=== PATIENT | female | born 1970 | race Caucasian/White ===

== ENCOUNTER 2017-03-24 12:06 | Emergency (ER) | payer SELFPAY ==
[2017-03-24] MEDS ORDERED: Sodium Chloride 0.9% 10 ML Syringe FLUSH PRN (12:36)
[2017-03-24] MEDS ORDERED: Sodium Chloride 0.9% 2.5 ML Syringe FLUSH PRN (12:36)
[2017-03-24] MEDS ORDERED: Ketorolac 30 MG/ML SDV IVPUSH ONE (12:37)
[2017-03-24] MEDS ORDERED: Sodium Chloride 0.9% 1,000 ML IV ONE (12:37)
--- NOTE | 2017-03-24 12:41 | EDM.PDOC ---
ED HPI GENERAL MEDICAL PROBLEM - General Chief Complaint: Abdominal Pain Stated Complaint: ABDOMINAL PAIN Time Seen by Provider: 03/24/17 12:38 Source of Information: Reports: Patient, Family History Limitations: Reports: No Limitations - History of Present Illness INITIAL COMMENTS - FREE TEXT/NARRATIVE: HISTORY AND PHYSICAL: []46-year-old female presenting with abdominal pain complains of heavy bleeding 3 days History of Present Illness: []Patient's states she's been bleeding off and on for the last 2 months history of prolapsed uterus She has 4 children [place] and has not established any primary care Patient has been seen in [place] last night was treated for "UTI given morphine and sent home" Continuing to Have pain today Review of Systems: As per history of present illness and below otherwise all systems reviewed and negative. Past medical history: As per history of present illness and as reviewed below otherwise noncontributory. Surgical history: As per history of present illness and as reviewed below otherwise noncontributory. Social history: No reported history of drug or alcohol abuse. Family history: As per history of present illness and as reviewed below otherwise noncontributory. Physical exam: Alert and oriented female who looks to be slightly distressed she is answering questions appropriately in full sentences HEENT: Atraumatic, normocehpalic, pupils reactive, negative for conjunctival pallor or scleral icterus, mucous membranes moist, throat clear, neck supple, nontender, trachea midline. Lungs: Clear to auscultation, breath sounds equal bilaterally, chest non tender. Heart: S1S2, regular, negative for clicks, rubs, or JVD. Abdomen: Soft, nondistended, tender. Negative for masses or hepatossplenmegaly. Negative for costovertebral tenderness. Pelvis: Stable nontender. Genitourinary: Deferred. Rectal: Deferred Extremities: Atraumatic, negative for cords or calf pain. Neurovascular unremarkable. Neuro: Awake, alert, oriented. Cranial nerves II through XII unremarkable. Cerebellum unremarkable. Motor and sensory unremarkable throughout. Exam nonfocal. Have discussed with and client dysfunctional uterine bleeding and the need to follow-up with INVENTORY TRANSCRIBER specialist. Diagnostics: [CBC CMP amylase lipase IV] Therapeutics: [Toradol IV 30 mg] Impression: [Dysfunctional uterine bleeding] Plan: [Refer to BRAILLE CODER Patient can be seen now at [facility] and will send her there.] Definitive disposition and diagnosis as appropriate pending reevaluation and review of above. Onset: Gradual Duration: Day(s):, Getting Worse Location: Reports: Abdomen Quality: Reports: Ache, Stabbing Severity: Moderate Associated Symptoms: Reports: No Other Symptoms Lower Abdomen Pain Score (Numeric/FACES): 8 - Related Data Allergies Allergy/AdvReac Type Severity Reaction Status Date / Time No Known Allergies Allergy Verified 03/24/17 12:13 Home Meds: Home Meds Carvedilol 12.5 mg PO DAILY 03/24/17 [History] DULoxetine [Cymbalta] 60 mg PO DAILY 03/24/17 [History] Gabapentin [Neurontin] 800 mg PO TID 03/24/17 [History] Past Medical History Cardiovascular History: Reports: Hypertension BRAILLE CODER History: Reports: Other (See Below) Musculoskeletal History: Reports: RA Social & Family History - Tobacco Use Smoking Status *Q: Current Every Day Smoker Years of Tobacco use: 17 Packs/Tins Daily: 0.5 - Caffeine Use Caffeine Use: Reports: None - Recreational Drug Use Recreational Drug Use: No ED ROS GENERAL - Review of Systems Review Of Systems: ROS reveals no pertinent complaints other than HPI. ED EXAM, GI/ABD - Physical Exam Exam: See Below (See dictation) Course - Vital Signs Last Recorded V/S: Last Vital Signs Temp 36.4 C 03/24/17 12:15 Pulse 96 03/24/17 12:15 Resp 18 03/24/17 12:15 BP 173/81 H 03/24/17 12:15 Pulse Ox 98 03/24/17 12:15 - Orders/Labs/Meds Orders: Active Orders 24 hr Category Date Time Status Sodium Chloride 0.9% [Saline Flush] Med 03/24/17 12:36 Active 10 ml FLUSH ASDIRECTED PRN Sodium Chloride 0.9% [Saline Flush] Med 03/24/17 12:36 Active 2.5 ml FLUSH ASDIRECTED PRN Saline Lock Insert [OM.PC] Stat Oth 03/24/17 12:36 Ordered Medication Orders Sodium Chloride (Saline Flush) 10 ml FLUSH ASDIRECTED PRN PRN Reason: Keep Vein Open Last Admin: 03/24/17 12:45 Dose: 10 ml Sodium Chloride (Saline Flush) 2.5 ml FLUSH ASDIRECTED PRN PRN Reason: Keep Vein Open Last Admin: 03/24/17 12:45 Dose: 2.5 ml Labs: Laboratory Tests 03/24/17 03/24/17 03/24/17 Range/Units 12:40 12:40 12:40 WBC 9.38 (4.0-11.0) K/uL RBC 4.25 L (4.30-5.90) M/uL Hgb 13.1 (12.0-16.0) g/dL Hct 37.8 (36.0-46.0) % MCV 88.9 (80.0-98.0) fL MCH 30.8 (27.0-32.0) pg MCHC 34.7 (31.0-37.0) g/dL RDW Std Deviation 39.8 (28.0-62.0) fl RDW Coeff of Christie 13 (11.0-15.0) % Plt Count 316 (150-400) K/uL MPV 11.30 (7.40-12.00) fL Neut % (Auto) 56.1 (48.0-80.0) % Lymph % (Auto) 35.6 (16.0-40.0) % Haywood % (Auto) 5.3 (0.0-15.0) % Eos % (Auto) 2.8 (0.0-7.0) % Baso % (Auto) 0.2 (0.0-1.5) % Neut # (Auto) 5.3 (1.4-5.7) K/uL Lymph # (Auto) 3.3 H (0.6-2.4) K/uL Haywood # (Auto) 0.5 (0.0-0.8) K/uL Eos # (Auto) 0.3 (0.0-0.7) K/uL Baso # (Auto) 0.0 (0.0-0.1) K/uL Sodium 141 (136-146) mmol/L Potassium 3.9 (3.5-5.1) mmol/L Chloride 107 (98-110) mmol/L Carbon Dioxide 25 (21-31) mmol/L BUN 11 (6.0-23.0) mg/dL Creatinine 0.8 (0.6-1.5) mg/dL Est Cr Clr Drug Dosing 86.36 mL/min Estimated GFR (MDRD) > 60.0 ml/min Glucose 130 H (60-110) mg/dL Calcium 9.8 (8.8-10.8) mg/dL Total Bilirubin 0.3 (0.1-1.5) mg/dL AST 17 (5-40) IU/L ALT 20 (8-54) IU/L Alkaline Phosphatase 77 (40-150) B-Natriuretic Peptide < 15 (<100) PG/ML Total Protein 6.9 (6.0-8.0) g/dL Albumin 4.0 (3.5-5.0) g/dL Globulin 2.9 (2.0-3.5) g/dL Albumin/Globulin Ratio 1.4 (1.3-2.8) Amylase 48 (10-90) U/L Lipase 52 (7-80) U/L TSH 3rd Generation 0.57 (0.47-5.0) uIU/mL Urine Color Urine Appearance Urine pH (5.0-8.0) Ur Specific Blevins (1.001-1.035) Urine Protein (NEGATIVE) mg/dL Urine Glucose (UA) (NEGATIVE) mg/dL Urine Ketones (NEGATIVE) mg/dL Urine Occult Blood (NEGATIVE) Urine Nitrite (NEGATIVE) Urine Bilirubin (NEGATIVE) Urine Urobilinogen (<2.0) EU/dL Ur Leukocyte Esterase (NEGATIVE) Urine RBC (0-2/HPF) Urine WBC (0-5/HPF) Ur Epithelial Cells (NONE-FEW) Amorphous Sediment (NEGATIVE) Urine Bacteria (NEGATIVE) Urine HCG, Qual (NEGATIVE) 03/24/17 03/24/17 Range/Units 12:50 12:50 WBC (4.0-11.0) K/uL RBC (4.30-5.90) M/uL Hgb (12.0-16.0) g/dL Hct (36.0-46.0) % MCV (80.0-98.0) fL MCH (27.0-32.0) pg MCHC (31.0-37.0) g/dL RDW Std Deviation (28.0-62.0) fl RDW Coeff of Christie (11.0-15.0) % Plt Count (150-400) K/uL MPV (7.40-12.00) fL Neut % (Auto) (48.0-80.0) % Lymph % (Auto) (16.0-40.0) % Haywood % (Auto) (0.0-15.0) % Eos % (Auto) (0.0-7.0) % Baso % (Auto) (0.0-1.5) % Neut # (Auto) (1.4-5.7) K/uL Lymph # (Auto) (0.6-2.4) K/uL Haywood # (Auto) (0.0-0.8) K/uL Eos # (Auto) (0.0-0.7) K/uL Baso # (Auto) (0.0-0.1) K/uL Sodium (136-146) mmol/L Potassium (3.5-5.1) mmol/L Chloride (98-110) mmol/L Carbon Dioxide (21-31) mmol/L BUN (6.0-23.0) mg/dL Creatinine (0.6-1.5) mg/dL Est Cr Clr Drug Dosing mL/min Estimated GFR (MDRD) ml/min Glucose (60-110) mg/dL Calcium (8.8-10.8) mg/dL Total Bilirubin (0.1-1.5) mg/dL AST (5-40) IU/L ALT (8-54) IU/L Alkaline Phosphatase (40-150) B-Natriuretic Peptide (<100) PG/ML Total Protein (6.0-8.0) g/dL Albumin (3.5-5.0) g/dL Globulin (2.0-3.5) g/dL Albumin/Globulin Ratio (1.3-2.8) Amylase (10-90) U/L Lipase (7-80) U/L TSH 3rd Generation (0.47-5.0) uIU/mL Urine Color YELLOW Urine Appearance SLT CLOUDY Urine pH 6.0 (5.0-8.0) Ur Specific Blevins <= 1.005 (1.001-1.035) Urine Protein NEGATIVE (NEGATIVE) mg/dL Urine Glucose (UA) NEGATIVE (NEGATIVE) mg/dL Urine Ketones NEGATIVE (NEGATIVE) mg/dL Urine Occult Blood LARGE H (NEGATIVE) Urine Nitrite NEGATIVE (NEGATIVE) Urine Bilirubin NEGATIVE (NEGATIVE) Urine Urobilinogen 0.2 (<2.0) EU/dL Ur Leukocyte Esterase NEGATIVE (NEGATIVE) Urine RBC 15-20 (0-2/HPF) Urine WBC 0-2 (0-5/HPF) Ur Epithelial Cells RARE (NONE-FEW) Amorphous Sediment FEW (NEGATIVE) Urine Bacteria FEW (NEGATIVE) Urine HCG, Qual NEGATIVE (NEGATIVE) Meds: Medications Generic Name Dose Route Start Last Admin Trade Name Freq PRN Reason Stop Dose Admin Sodium Chloride 10 ml 03/24/17 12:36 03/24/17 12:45 Saline Flush FLUSH 10 ml ASDIRECTED PRN Administration Keep Vein Open Sodium Chloride 2.5 ml 03/24/17 12:36 03/24/17 12:45 Saline Flush FLUSH 2.5 ml ASDIRECTED PRN Administration Keep Vein Open Discontinued Medications Generic Name Dose Route Start Last Admin Trade Name Freq PRN Reason Stop Dose Admin Sodium Chloride 1,000 mls @ 999 mls/hr 03/24/17 12:37 03/24/17 12:44 Normal Saline IV 03/24/17 13:37 999 mls/hr STAT ONE Administration Ketorolac Tromethamine 30 mg 03/24/17 12:37 03/24/17 12:44 Toradol IVPUSH 03/24/17 12:38 30 mg ONETIME ONE Administration Morphine Sulfate 2 mg 03/24/17 14:18 Morphine IV 03/24/17 14:19 ONETIME ONE Departure - Departure Time of Disposition: 14:19 Disposition: Home, Self-Care 01 Condition: Good Clinical Impression: Dysfunctional uterine bleeding - Discharge Information Instructions: Pain Medicine Instructions, [id number] Referrals: PCP,Wilman [Primary Care Provider] - Khalida Baker [Physician] - Forms: ED Department Discharge Additional Instructions: The following information is given to patients seen in the emergency department who are being discharged to home. This information is to outline your options for follow-up care. We provide all patients seen in our emergency department with a follow-up referral. The need for follow-up, as well as the timing and circumstances, are variable depending upon the specifics of your emergency department visit. If you don't have a primary care physician on staff, we will provide you with a referral. We always advise you to contact your personal physician following an emergency department visit to inform them of the circumstance of the visit and for follow-up with them and/or the need for any referrals to a consulting specialist. The emergency department will also refer you to a specialist when appropriate. This referral assures that you have the opportunity for followup care with a specialist. All of these measure are taken in an effort to provide you with optimal care, which includes your followup. Under all circumstances we always encourage you to contact your private physician who remains a resource for coordinating your care. When calling for followup care, please make the office aware that this follow-up is from your recent emergency room visit. If for any reason you are refused follow-up, please contact the [facility] emergency department at and asked to speak to the emergency department charge nurse. Have discussed dysfunctional uterine bleeding and recommend that you follow-up with a REGISTRATION SPECIALIST specialist Pain medication has been written for prescription Hydrocodone/APAP 5/325 mg 1 tablet 3 times a day when necessary pain #12NR Referral has been made to Dr. Puente at [facility] [address] [place] [address] Please call for an appointment right away and stated that she was seen in the emergency room and referred - My Orders Last 24 Hours: My Active Orders 03/24/17 12:36 Sodium Chloride 0.9% [Saline Flush] 10 ml FLUSH ASDIRECTED PRN Sodium Chloride 0.9% [Saline Flush] 2.5 ml FLUSH ASDIRECTED PRN Saline Lock Insert [OM.PC] Stat - Assessment/Plan Last 24 Hours: My Active Orders 03/24/17 12:36 Sodium Chloride 0.9% [Saline Flush] 10 ml FLUSH ASDIRECTED PRN Sodium Chloride 0.9% [Saline Flush] 2.5 ml FLUSH ASDIRECTED PRN Saline Lock Insert [OM.PC] Stat
[2017-03-24 13:14] LABS: CHLORIDE,CL 107 mmol/L (98-110); SODIUM,NA 141 mmol/L (136-146)
--- NOTE | 2017-03-24 14:05 | US ---
Pelvic non-OB sonogram Longitudinal and transverse sections demonstrate that the uterus is of normal size and contour with some thickness of the endometrium measuring 1.7 cm with no endometrial gestational sac or fluid. Huslia soila measures 10.08 x 6.12 x 6.89 cm. Right ovary is greatest dimension is 2.2 cm in length and left ovaries greatest dimension is 3.65 cm in length there is a 3.4 cm simple cyst associated with the le ft ovary. No free fluid in the pelvis. Impression: Findings consistent with likely mid cycle uterus and ovarian cyst as described. No evide nce of significant cyst hemorrhage
[2017-03-24] MEDS ORDERED: Morphine 10 MG/ML Syringe IV ONE (14:18)
[2017-03-24 14:42] VITALS: BP 155/90
== END 2017-03-24 14:41 | disposition home or self-care (01) ==
LOC: MW.ED 12:06
DX: N93.8 Other specified abnormal uterine and vaginal bleeding (principal); I10 Essential (primary) hypertension; F17.210 Nicotine dependence, cigarettes, uncomplicated; Z79.899 Other long term (current) drug therapy
CPT/HCPCS: 36415; 76856; 80053; 81001; 81025; 82150; 83690; 83880; 84443; 85025; 96361; 96374; 96375; 99284; J1885; J2270; J7040

== ENCOUNTER 2017-10-23 21:30 | Emergency (ER) | payer BC ==
--- NOTE | 2017-10-23 21:40 | EDM.PDOC ---
<Juhi Gibson E - Last Filed: 10/23/17 21:46> ED HPI GENERAL MEDICAL PROBLEM - General Chief Complaint: General Stated Complaint: WEAK/CONGESTION Time Seen by Provider: 10/23/17 21:37 Source of Information: Reports: Patient History Limitations: Reports: No Limitations - History of Present Illness INITIAL COMMENTS - FREE TEXT/NARRATIVE: HISTORY AND PHYSICAL: History of present illness: Patient is a 47-year-old female who presents to the emergency room today with complaints of sore throat, chest congestion and pressure, low abdominal cramping and fatigue/weakness 5 days. She denies any fever, chills, nausea, vomiting, diarrhea/constipation. Diffuse abdominal pain without tenderness. Patient reports that she has had vaginal discharge and low abdominal cramping for several months which she is currently doctoring with Dr. Martin, and has a hysterectomy scheduled next week. Review of systems: As per history of present illness and below otherwise all systems reviewed and negative. Past medical history: As per history of present illness and as reviewed below otherwise noncontributory. Surgical history: As per history of present illness and as reviewed below otherwise noncontributory. Social history: No reported history of drug or alcohol abuse. Family history: As per history of present illness and as reviewed below otherwise noncontributory. Physical exam: General: Well developed and well nourished 47 year old female. Alert and oriented. Nontoxic appearing and in no acute distress HEENT: Atraumatic, normocephalic, pupils reactive, negative for conjunctival pallor or scleral icterus, mucous membranes moist, throat clear, neck supple, nontender, trachea midline. Lungs: Clear to auscultation, breath sounds equal bilaterally, chest nontender. Heart: S1S2, regular rate and rhythm Abdomen: Soft, nondistended, nontender. Negative for masses or hepatosplenomegaly. Negative for costovertebral tenderness. Pelvis: Stable nontender. Genitourinary: Deferred. Rectal: Deferred. Extremities: Atraumatic, negative for cords or calf pain. Neurovascular unremarkable. Neuro: Awake, alert, oriented. Cranial nerves II through XII unremarkable. Cerebellum unremarkable. Motor and sensory unremarkable throughout. Exam nonfocal. We discussed doing some lab work at this time. I did ask about the vaginal discharge/cramping and she states she is doctoring for this with her BUSINESS SEGMENT MANAGER. She declines a pelvic exam at this time as she states this is not a new concern and is being her primary OBGYN. Pressure is currently elevated, she does state she takes medications daily and is usually well managed. Diagnostics: CBC, CMP, Monospot, Strep Screen, UA Therapeutics: IV Fluids, Duo Neb Impression: Viral Illness Abdominal Pain Plan: 1. Supportive care measures such as Tylenol and/or ibuprofen as needed for pain and fever management. 2. Please drink plenty of fluids to prevent dehydration. 3. Continue care with your BUSINESS SEGMENT MANAGER for further management of your gyncological needs. Return to the ED as needed and as discussed. Definitive disposition and diagnosis as appropriate pending reevaluation and review of above. Duration: Day(s): abdomen Pain Score (Numeric/FACES): 7 - Related Data Allergies Allergy/AdvReac Type Severity Reaction Status Date / Time No Known Allergies Allergy Verified 10/23/17 21:35 Home Meds: Home Meds Carvedilol 12.5 mg PO DAILY 03/24/17 [History] DULoxetine [Cymbalta] 60 mg PO DAILY 03/24/17 [History] Gabapentin [Neurontin] 600 mg PO TID 03/24/17 [History] Melatonin 0 tab PO BEDTIME 10/23/17 [History] Past Medical History Cardiovascular History: Reports: Hypertension BUSINESS SEGMENT MANAGER History: Reports: Other (See Below) Musculoskeletal History: Reports: RA Social & Family History - Tobacco Use Smoking Status *Q: Current Every Day Smoker Years of Tobacco use: 17 Packs/Tins Daily: 0.5 - Caffeine Use Caffeine Use: Reports: None - Recreational Drug Use Recreational Drug Use: No ED ROS GENERAL - Review of Systems Review Of Systems: ROS reveals no pertinent complaints other than HPI. ED EXAM, GENERAL - Physical Exam Exam: See Below (See dictation) Course - Vital Signs Last Recorded V/S: Last Vital Signs Temp 36.6 C 10/23/17 21:30 Pulse 90 10/23/17 22:50 Resp 16 10/23/17 22:50 BP 155/82 H 10/23/17 22:50 Pulse Ox 100 10/23/17 22:50 - Orders/Labs/Meds Orders: Active Orders 24 hr Category Date Time Status EKG Documentation Completion [RC] STAT Care 03/16/18 21:43 Active RT Aerosol Therapy [RC] ASDIRECTED Care 10/23/17 21:43 Active Chest 1V Frontal [CR] Stat Exams 10/23/17 21:43 Taken CULTURE STREP A CONFIRMATION [RM] Stat Lab 10/23/17 21:50 Results STREP SCRN A RAPID W CULT CONF [RM] Stat Lab 10/23/17 21:50 Results Labs: Laboratory Tests 10/23/17 10/23/17 10/23/17 Range/Units 21:54 21:54 21:54 WBC 8.64 (4.0-11.0) K/uL RBC 4.69 (4.30-5.90) M/uL Hgb 13.2 (12.0-16.0) g/dL Hct 39.9 (36.0-46.0) % MCV 85.1 (80.0-98.0) fL MCH 28.1 (27.0-32.0) pg MCHC 33.1 (31.0-37.0) g/dL RDW Std Deviation 44.0 (28.0-62.0) fl RDW Coeff of Christie 14 (11.0-15.0) % Plt Count 285 (150-400) K/uL MPV 11.00 (7.40-12.00) fL Neut % (Auto) 54.8 (48.0-80.0) % Lymph % (Auto) 29.4 (16.0-40.0) % Crenshaw % (Auto) 9.7 (0.0-15.0) % Eos % (Auto) 5.8 (0.0-7.0) % Baso % (Auto) 0.3 (0.0-1.5) % Neut # (Auto) 4.7 (1.4-5.7) K/uL Lymph # (Auto) 2.5 H (0.6-2.4) K/uL Crenshaw # (Auto) 0.8 (0.0-0.8) K/uL Eos # (Auto) 0.5 (0.0-0.7) K/uL Baso # (Auto) 0.0 (0.0-0.1) K/uL Nucleated RBC % 0.0 /100WBC Nucleated RBCs # 0 K/uL Sodium 139 (136-145) mmol/L Potassium 3.8 (3.5-5.1) mmol/L Chloride 102 (98-107) mmol/L Carbon Dioxide 28.2 (21.0-32.0) mmol/L BUN 12 (7.0-18.0) mg/dL Creatinine 0.7 (0.6-1.0) mg/dL Est Cr Clr Drug Dosing TNP Estimated GFR (MDRD) > 60.0 ml/min Glucose 104 (74-106) mg/dL Calcium 9.4 (8.5-10.1) mg/dL Total Bilirubin 0.2 (0.2-1.0) mg/dL AST 16 (15-37) IU/L ALT 22 (14-63) IU/L Alkaline Phosphatase 108 (46-116) U/L Troponin I < 0.050 (0.000-0.056) ng/mL Total Protein 7.3 (6.4-8.2) g/dL Albumin 3.8 (3.4-5.0) g/dL Globulin 3.5 (2.0-3.5) g/dL Albumin/Globulin Ratio 1.1 L (1.3-2.8) Monoscreen NEGATIVE (NEG) Meds: Medications Discontinued Medications Generic Name Dose Route Start Last Admin Trade Name Freq PRN Reason Stop Dose Admin Albuterol/Ipratropium 3 ml 10/23/17 21:43 10/23/17 22:12 Duoneb 3.0-0.5 Mg/3 Ml NEB 10/23/17 21:44 3 ml ONETIME ONE Administration Sodium Chloride 1,000 mls @ 999 mls/hr 10/23/17 21:45 10/23/17 21:56 Normal Saline IV 10/23/17 22:45 999 mls/hr STAT ONE Administration Ketorolac Tromethamine 30 mg 10/23/17 21:50 10/23/17 21:59 Toradol IVPUSH 10/23/17 21:51 30 mg ONETIME ONE Administration Departure - Departure Disposition: Home, Self-Care 01 Clinical Impression: Viral syndrome - Discharge Information Referrals: PCP,None [Primary Care Provider] - Forms: ED Department Discharge Additional Instructions: My general discharge The following information is given to patients seen in the emergency department who are being discharged to home. This information is to outline your options for follow-up care. We provide all patients seen in our emergency department with a follow-up referral. The need for follow-up, as well as the timing and circumstances, are variable depending upon the specifics of your emergency department visit. If you don't have a primary care physician on staff, we will provide you with a referral. We always advise you to contact your personal physician following an emergency department visit to inform them of the circumstance of the visit and for follow-up with them and/or the need for any referrals to a consulting specialist. The emergency department will also refer you to a specialist when appropriate. This referral assures that you have the opportunity for follow-up care with a specialist. All of these measure are taken in an effort to provide you with optimal care, which includes your follow-up. Under all circumstances we always encourage you to contact your private physician who remains a resource for coordinating your care. When calling for follow-up care, please make the office aware that this follow-up is from your recent emergency room visit. If for any reason you are refused follow-up, please contact the [facility] Emergency Department at and asked to speak to the emergency department charge nurse. [facility] [address] [place] [id number] 1. Supportive care measures such as Tylenol and/or ibuprofen as needed for pain and fever management. 2. Please drink plenty of fluids to prevent dehydration. 3. Continue care with your BUSINESS SEGMENT MANAGER for further management of your gyncological needs. Return to the ED as needed and as discussed. <Etienne Esteban - Last Filed: 10/23/17 23:01> Departure - Departure Time of Disposition: 23:01 Condition: Good
[2017-10-23] MEDS ORDERED: Albuterol/Ipratropium 3.0-0.5 MG/3 ML Neb Soln NEB ONE (21:43)
[2017-10-23] MEDS ORDERED: Sodium Chloride 0.9% 1,000 ML IV ONE (21:45)
[2017-10-23] MEDS ORDERED: Ketorolac 30 MG/ML SDV IVPUSH ONE (21:50)
[2017-10-23 22:32] LABS: CHLORIDE,CL 102 mmol/L (98-107); SODIUM,NA 139 mmol/L (136-145)
[2017-10-23 22:51] VITALS: BP 155/82
--- NOTE | 2017-10-26 15:13 | CR ---
EXAM DATE: 10/23/17 PATIENT'S AGE: 47 Patient: NORM DENISE Facility: [place], [place] Site . Site : [id number] Study: XRay Chest [id number] 10:35:44 PM Ordering Physician: Doctor Chau Final Report: INDICATION: cough x1 wk, sob, weakness TECHNIQUE: Chest 1 view COMPARISON: None FINDINGS: Cardiovascular and mediastinum: Heart size and vasculature are normal in caliber and appearance. Mediastinum is within normal limits. Lungs and pleural space: No focal consolidation. No sign of pleural effusion. No pneumothorax. Bones and soft tissues: No significant findings. IMPRESSION: No acute cardiopulmonary disease. Dictated by Eric Becker MD @ 10/23/2017 10:54:51 PM Dictated by: Eric Becker MD @ 10/23/2017 22:54:59 (Electronic Signature) Report Signed by Proxy. [email or web address]
== END 2017-10-23 23:12 | disposition home or self-care (01) ==
LOC: MW.ED 21:30
DX: B34.9 Viral infection, unspecified (principal); I10 Essential (primary) hypertension; F17.210 Nicotine dependence, cigarettes, uncomplicated; Z79.899 Other long term (current) drug therapy
CPT/HCPCS: 36415; 71045; 80053; 84484; 85025; 86308; 87081; 87804; 87880; 93005; 94640; 96361; 96374; 99285; J1885; J7040; 99283

== ENCOUNTER 2018-10-05 06:43 | Day surgery (SDC) | payer BC ==
[~2018-10-05 06:43] MED LIST: Lactated Ringers 1,000 ML IV SCH
[2018-10-05] MEDS ORDERED: Rocuronium 10 MG/ML 10 ML Syringe ONE (07:18)
[2018-10-05] MEDS ORDERED: Ondansetron 4 MG/2 ML SDV ONE (07:18)
[2018-10-05] MEDS ORDERED: Propofol 200 MG/20 ML SDV ONE (07:18)
[2018-10-05] MEDS ORDERED: fentaNYL 250 MCG/5 ML SDV ONE (07:19)
[2018-10-05] MEDS ORDERED: Scopolamine 1.5 MG Transdermal Patch TRDERM PRN (07:19)
--- NOTE | 2018-10-05 07:22 | PCM.PREANE ---
Preanesthetic Assessment - Anesthesia/Transfusion/Family Hx Anesthesia History: Prior Anesthesia Without Reaction Family History of Anesthesia Reaction: No Transfusion History: Prior Transfusion Without Reaction Intubation History: Unknown - Review of Systems General: No Symptoms Pulmonary: No Symptoms Cardiovascular: No Symptoms Gastrointestinal: No Symptoms Neurological: No Symptoms Other: Reports: None - Physical Assessment Height: 1.7 m Weight: 91.626 kg ASA Class: 2 Mental Status: Alert & Oriented x3 Airway Class: Mallampati = 2 Dentition: Reports: Normal Dentition Thyro-Mental Finger Breadths: 3 Mouth Opening Finger Breadths: 3 ROM/Head Extension: Full Lungs: Clear to Auscultation, Normal Respiratory Effort Cardiovascular: Regular Rate, Regular Rhythm - Allergies Allergies/Adverse Reactions: Allergies Allergy/AdvReac Type Severity Reaction Status Date / Time No Known Allergies Allergy Verified 09/30/18 10:51 - Blood Blood Available: No - Anesthesia Plan Pre-Op Medication Ordered: None - Acknowledgements Anesthesia Type Planned: General Anesthesia Pt an Appropriate Candidate for the Planned Anesthesia: Yes Alternatives and Risks of Anesthesia Discussed w Pt/Guardian: Yes Pt/Guardian Understands and Agrees with Anesthesia Plan: Yes PreAnesthesia Questionnaire Cardiovascular History: Reports: Hypertension Gastrointestinal History: Reports: None Genitourinary History: Reports: None 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: Musculoskeletal History: Reports: Fibromyalgia, RA Psychiatric History: Reports: Anxiety Endocrine/Metabolic History: Reports: Obesity/BMI 30+ Hematologic History: Reports: Anemia, Blood Transfusion(s) - Past Surgical History GI Surgical History: Reports: Appendectomy Female Surgical History: Reports: Section - SUBSTANCE USE Smoking Status *Q: Former Smoker (quit smoking 6 months ago, now uses vaporizer) Tobacco Use Within Last Twelve Months: Cigarettes Recreational Drug Use History: No - HOME MEDS Home Medications: Home Meds Carvedilol 25 mg PO QAM 03/24/17 [History] DULoxetine [Cymbalta] 60 mg PO DAILY 03/24/17 [History] Gabapentin [Neurontin] 600 mg PO TID 03/24/17 [History] - CURRENT (IN HOUSE) MEDS Current Meds: Current Medications Lactated Ringer's (Ringers, Lactated) 1,000 mls @ 125 mls/hr IV ASDIRECTED [facility]
[2018-10-05] MEDS ORDERED: Midazolam 1 MG/ML 2 ML SDV ONE (07:23)
[2018-10-05] MEDS ORDERED: Fluorescein 5 ML Vial ONE (07:33)
[2018-10-05] MEDS ORDERED: Bupivacaine 0.25% 10 ML SDV ONE (07:33)
[2018-10-05 07:42] LABS: CHLORIDE,CL 103 mmol/L (98-107); SODIUM,NA 142 mmol/L (136-145)
[2018-10-05] MEDS ORDERED: ceFAZolin/Dextrose,Iso-Osmotic 2 GM/50 ML Duplex Bag IV ONE (08:38)
[2018-10-05] MEDS ORDERED: ePHEDrine 50 MG/ML SDV ONE (08:45)
[2018-10-05] MEDS ORDERED: Phenylephrine/Normal Saline 100 MCG/ML 10 ML Syringe ONE (08:45)
[2018-10-05] MEDS ORDERED: Vasopressin 20 Units/1 ML MDV ONE ×2 (08:46→09:00)
[2018-10-05] MEDS ORDERED: Ketorolac 30 MG/ML SDV ONE (08:50)
[2018-10-05] MEDS ORDERED: diphenhydrAMINE 50 MG/ML SDV ONE (08:50)
[2018-10-05] MEDS ORDERED: Glycopyrrolate 0.2 MG/ML SDV ONE (09:34)
[2018-10-05] MEDS ORDERED: Neostigmine Methylsulfate 1 MG/ML 5 ML Syringe ONE (09:35)
[2018-10-05] MEDS ORDERED: Furosemide 40 MG/4 ML VIAL ONE (09:54)
[2018-10-05] MEDS ORDERED: fentaNYL 100 MCG/2 ML SDV IVPUSH PRN (10:12)
[2018-10-05] MEDS ORDERED: HYDROmorphone 2 MG/ML SDV IVPUSH PRN (10:12)
[2018-10-05] MEDS ORDERED: Ondansetron 4 MG/2 ML SDV IVPUSH ONE (10:12)
[2018-10-05] MEDS ORDERED: fentaNYL 100 MCG/2 ML SDV ONE (10:37)
[2018-10-05] MEDS ORDERED: Ketorolac 30 MG/ML SDV IVPUSH ONE (11:10)
[2018-10-05] MEDS ORDERED: Ondansetron 4 MG/2 ML SDV IVPUSH PRN (11:10)
[2018-10-05] MEDS ORDERED: Acetaminophen/oxyCODONE 325-5 MG Tab PO PRN (11:10)
[2018-10-05] MEDS ORDERED: Ketorolac 30 MG/ML SDV IVPUSH PRN (11:10)
[2018-10-05] MEDS ORDERED: Promethazine 25 MG/ML SDV IM PRN (11:10)
--- NOTE | 2018-10-05 11:10 | PCM.OPNOTE ---
- General Post-Op/Procedure Note Date of Surgery/Procedure: 10/05/18 Operative Procedure(s): Laparoscopic assisted vaginal hysterectomy, Bilateral salphingectomy. Cystoscopy Findings: EUA showed a 12 week sized uterus Laparoscopy showed evidence of Tubal ligation Bulky uterus Pre Op Diagnosis: Abnormal uterine bleeding Post-Op Diagnosis: Abnormal uterine bleeding Anesthesia Technique: Other (see below) (General) Primary Surgeon: Khalida Baker Secondary Surgeon: Regine Appiah Pathology: Uterus and bilateral right and left tubes Fluid Replacement, Intraop: 1,800 Output, Urine Amount: 200 EBL in mLs: 200 Complications: None Condition: Good
[2018-10-05] MEDS: Acetaminophen 1,000 MG in Premix Bag 1 BAG IV SCH ×3 (11:38→23:18)
--- NOTE | 2018-10-05 11:48 | PCM.POSTAN ---
POST ANESTHESIA ASSESSMENT - MENTAL STATUS Mental Status: Alert, Oriented - RESPIRATORY Respiratory Status: Respiratory Rate WNL, Airway Patent, O2 Saturation Stable - CARDIOVASCULAR CV Status: Pulse Rate WNL, Blood Pressure Stable - GASTROINTESTINAL GI Status: No Symptoms - PAIN Pain Score: 6 - POST OP HYDRATION Hydration Status: Adequate & Stable - OBSERVATIONS Free Text/Narrative:: no anesthesia problems
[2018-10-05] MEDS: Morphine 4 MG/ML Syringe IVPUSH PRN ×3 (12:27→23:17)
[2018-10-05] MEDS: Metoclopramide 10 MG/2 ML SDV IVPUSH SCH ×2 (13:59→23:18)
[2018-10-05] MEDS: Acetaminophen/oxyCODONE 325-5 MG Tab PO PRN ×2 (13:59→20:18)
[2018-10-06] MEDS: Acetaminophen/oxyCODONE 325-5 MG Tab PO PRN ×2 (02:23→06:46)
[2018-10-06 06:38] LABS: CHLORIDE,CL 105 mmol/L (98-107); SODIUM,NA 142 mmol/L (136-145)
[2018-10-06] MEDS: Metoclopramide 10 MG/2 ML SDV IVPUSH SCH (06:38)
[2018-10-06] MEDS: Acetaminophen 1,000 MG in Premix Bag 1 BAG IV SCH (06:42)
--- NOTE | 2018-10-06 07:15 | PCM48HPAN ---
Post Anesthesia Note - EVALUATION WITHIN 48HRS OF ANESTHETIC Vital Signs in Normal Range: Yes Patient Participated in Evaluation: Yes Respiratory Function Stable: Yes Airway Patent: Yes Cardiovascular Function Stable: Yes Hydration Status Stable: Yes Pain Control Satisfactory: Yes Nausea and Vomiting Control Satisfactory: Yes Mental Status Recovered: Yes Resp Rate: 18 - COMMENTS/OBSERVATIONS Free Text/Narrative:: Post-operative anemia - mild
--- NOTE | 2018-10-06 07:51 | PCM.SURGPN ---
- General Info Date of Service: 10/06/18 Date of Surgery/Procedure: 10/05/18 POD#: 1 Post-Op Diagnosis: abnormal uterine bleeding Functional Status: Reports: Pain Controlled, Tolerating Diet, Ambulating, Urinating - Review of Systems General: Reports: No Symptoms HEENT: Reports: No Symptoms Pulmonary: Reports: No Symptoms Cardiovascular: Reports: No Symptoms Gastrointestinal: Reports: No Symptoms Genitourinary: Reports: No Symptoms Musculoskeletal: Reports: No Symptoms Skin: Reports: No Symptoms Neurological: Reports: No Symptoms Psychiatric: Reports: No Symptoms - Patient Data Vitals - Most Recent: Last Vital Signs Temp 36.8 C 10/06/18 04:05 Pulse 83 10/06/18 04:05 Resp 18 10/06/18 07:15 BP 131/77 10/06/18 04:05 Pulse Ox 95 10/06/18 04:05 Weight - Most Recent: 91.626 kg I&O - Last 24 Hours: Intake & Output 10/05/18 10/06/18 10/06/18 22:59 06:59 14:59 Intake Total 500 1400 Output Total 1400 550 Balance -900 850 Lab Results Last 24 Hrs: Laboratory Results - last 24 hr 10/05/18 10/05/18 10/05/18 Range/Units 07:17 07:17 07:17 WBC (4.0-11.0) K/uL RBC (4.30-5.90) M/uL Hgb (12.0-16.0) g/dL Hct (36.0-46.0) % MCV (80.0-98.0) fL MCH (27.0-32.0) pg MCHC (31.0-37.0) g/dL RDW Std Deviation (28.0-62.0) fl RDW Coeff of Christie (11.0-15.0) % Plt Count (150-400) K/uL MPV (7.40-12.00) fL Neut % (Auto) (48.0-80.0) % Lymph % (Auto) (16.0-40.0) % Bladen % (Auto) (0.0-15.0) % Eos % (Auto) (0.0-7.0) % Baso % (Auto) (0.0-1.5) % Neut # (Auto) (1.4-5.7) K/uL Lymph # (Auto) (0.6-2.4) K/uL Bladen # (Auto) (0.0-0.8) K/uL Eos # (Auto) (0.0-0.7) K/uL Baso # (Auto) (0.0-0.1) K/uL Nucleated RBC % /100WBC Nucleated RBCs # K/uL Sodium 142 (136-145) mmol/L Potassium 4.1 (3.5-5.1) mmol/L Chloride 103 (98-107) mmol/L Carbon Dioxide 29.3 (21.0-32.0) mmol/L BUN 11 (7.0-18.0) mg/dL Creatinine 0.8 (0.6-1.0) mg/dL Est Cr Clr Drug Dosing 84.54 mL/min Estimated GFR (MDRD) > 60.0 ml/min Glucose 110 H (74-106) mg/dL Calcium 9.4 (8.5-10.1) mg/dL HCG, Qual NEGATIVE (NEG) Blood Type A POSITIVE Antibody Screen NEGATIVE 10/06/18 10/06/18 Range/Units 05:32 05:32 WBC 9.87 (4.0-11.0) K/uL RBC 4.15 L (4.30-5.90) M/uL Hgb 9.6 L (12.0-16.0) g/dL Hct 31.6 L (36.0-46.0) % MCV 76.1 L (80.0-98.0) fL MCH 23.1 L (27.0-32.0) pg MCHC 30.4 L (31.0-37.0) g/dL RDW Std Deviation 43.6 (28.0-62.0) fl RDW Coeff of Christie 16 H (11.0-15.0) % Plt Count 319 (150-400) K/uL MPV 10.80 (7.40-12.00) fL Neut % (Auto) 64.9 (48.0-80.0) % Lymph % (Auto) 23.2 (16.0-40.0) % Bladen % (Auto) 9.7 (0.0-15.0) % Eos % (Auto) 1.9 (0.0-7.0) % Baso % (Auto) 0.3 (0.0-1.5) % Neut # (Auto) 6.4 H (1.4-5.7) K/uL Lymph # (Auto) 2.3 (0.6-2.4) K/uL Bladen # (Auto) 1.0 H (0.0-0.8) K/uL Eos # (Auto) 0.2 (0.0-0.7) K/uL Baso # (Auto) 0.0 (0.0-0.1) K/uL Nucleated RBC % 0.0 /100WBC Nucleated RBCs # 0 K/uL Sodium 142 (136-145) mmol/L Potassium 3.9 (3.5-5.1) mmol/L Chloride 105 (98-107) mmol/L Carbon Dioxide 30.4 (21.0-32.0) mmol/L BUN 11 (7.0-18.0) mg/dL Creatinine 0.9 (0.6-1.0) mg/dL Est Cr Clr Drug Dosing 75.15 mL/min Estimated GFR (MDRD) > 60.0 ml/min Glucose 136 H (74-106) mg/dL Calcium 8.8 (8.5-10.1) mg/dL HCG, Qual (NEG) Blood Type Antibody Screen Med Orders - Current: Current Medications Lactated Ringer's (Ringers, Lactated) 1,000 mls @ 125 mls/hr IV ASDIRECTED [facility] Last Admin: 10/05/18 07:49 Dose: 125 mls/hr Acetaminophen 1,000 mg/ Premix 100 mls @ 400 mls/hr IV Q6H [facility] Last Admin: 10/06/18 06:42 Dose: 400 mls/hr Ketorolac Tromethamine (Toradol) 30 mg IVPUSH Q6H PRN PRN Reason: Pain (severe 7-10) Stop: 10/10/18 11:11 Metoclopramide HCl (Reglan) 10 mg IVPUSH Q8H [facility] Last Admin: 10/06/18 06:38 Dose: 10 mg Morphine Sulfate (Morphine) 4 mg IVPUSH Q2H PRN PRN Reason: Pain (severe 7-10) Last Admin: 10/05/18 23:17 Dose: 4 mg Ondansetron HCl (Zofran) 4 mg IVPUSH Q6H PRN PRN Reason: Nausea/Vomiting Oxycodone/Acetaminophen (Percocet 325-5 Mg) 1 tab PO Q4H PRN PRN Reason: Pain (moderate 4-6) Oxycodone/Acetaminophen (Percocet 325-5 Mg) 2 tab PO Q4H PRN PRN Reason: Pain (moderate 4-6) Last Admin: 10/06/18 06:46 Dose: 2 tab Promethazine HCl (Phenergan) 25 mg IM Q6H PRN PRN Reason: Nausea/Vomiting Scopolamine (Transderm-Scop) 1.5 mg TRDERM Q72H PRN PRN Reason: Nausea Last Admin: 10/05/18 07:49 Dose: 1.5 mg Discontinued Medications Bupivacaine HCl (Sensorcaine-Mpf 0.25%) Confirm Administered Dose 10 ml .ROUTE .STK-MED ONE Stop: 10/05/18 07:34 Cefazolin Sodium/Dextrose (Ancef) Confirm Administered Dose 2 gm IV .STK-MED ONE Stop: 10/05/18 08:39 Diphenhydramine HCl (Benadryl) Confirm Administered Dose 50 mg .ROUTE .STK-MED ONE Stop: 10/05/18 08:51 Ephedrine Sulfate (Ephedrine Sulfate) Confirm Administered Dose 50 mg .ROUTE .STK-MED ONE Stop: 10/05/18 08:46 Fentanyl (Sublimaze) Confirm Administered Dose 250 mcg .ROUTE .STK-MED ONE Stop: 10/05/18 07:20 Fentanyl (Sublimaze) 50 mcg IVPUSH Q5M PRN PRN Reason: Pain (severe 7-10) Stop: 10/06/18 10:16 Fentanyl (Sublimaze) Confirm Administered Dose 100 mcg .ROUTE .STK-MED ONE Stop: 10/05/18 10:38 Fluorescein Sodium (Ak-Fluor) Confirm Administered Dose 5 ml .ROUTE .STK-MED ONE Stop: 10/05/18 07:34 Furosemide (Lasix) Confirm Administered Dose 40 mg .ROUTE .STK-MED ONE Stop: 10/05/18 09:55 Glycopyrrolate (Robinul) Confirm Administered Dose 0.4 mg .ROUTE .STK-MED ONE Stop: 10/05/18 09:35 Hydromorphone HCl (Dilaudid) 0.5 mg IVPUSH Q10M PRN PRN Reason: Pain (severe 7-10) Stop: 10/06/18 10:17 Lidocaine HCl (Xylocaine-Mpf 1%) Confirm Administered Dose 5 mls @ as directed .ROUTE .STK-MED ONE Stop: 10/05/18 07:19 Acetaminophen (Ofirmev) Confirm Administered Dose 100 mls @ as directed IV .STK- MED ONE Stop: 10/05/18 11:24 Ketorolac Tromethamine (Toradol) Confirm Administered Dose 30 mg .ROUTE .STK- MED ONE Stop: 10/05/18 08:51 Ketorolac Tromethamine (Toradol) 30 mg IVPUSH ONETIME ONE Stop: 10/05/18 11:11 Last Admin: 10/05/18 15:06 Dose: Not Given Midazolam HCl (Versed 1 Mg/Ml) Confirm Administered Dose 2 mg .ROUTE .STK-MED ONE Stop: 10/05/18 07:24 Neostigmine Methylsulfate (Neostigmine) Confirm Administered Dose 5 mg .ROUTE .STK-MED ONE Stop: 10/05/18 09:36 Ondansetron HCl (Zofran) Confirm Administered Dose 4 mg .ROUTE .STK-MED ONE Stop: 10/05/18 07:19 Ondansetron HCl (Zofran) 4 mg IVPUSH ONETIME ONE Stop: 10/05/18 10:13 Last Admin: 10/05/18 16:04 Dose: Not Given Phenylephrine HCl (Phenylephrine In Ns 100 Mcg/Ml) Confirm Administered Dose 1 mg .ROUTE .STK-MED ONE Stop: 10/05/18 08:46 Propofol (Diprivan 20 Ml) Confirm Administered Dose 200 mg .ROUTE .STK-MED ONE Stop: 10/05/18 07:19 Rocuronium Ringgold (Zemuron) Confirm Administered Dose 100 mg .ROUTE .STK-MED ONE Stop: 10/05/18 07:19 Vasopressin (Vasopressin) Confirm Administered Dose 20 units .ROUTE .STK-MED ONE Stop: 10/05/18 08:47 Vasopressin (Vasopressin) Confirm Administered Dose 20 units .ROUTE .STK-MED ONE Stop: 10/05/18 09:01 - Exam Wound/Incisions: Dressing Dry and Intact General: Alert HEENT: Pupils Equal Neck: Supple Lungs: Clear to Auscultation Cardiovascular: Regular Rate, Regular Rhythm GI/Abdominal Exam: Normal Bowel Sounds Extremities: Normal Inspection Psy/Mental Status: Alert - Problem List & Annotations (1) S/P hysterectomy SNOMED Code(s): 481884137, 362471487, 119594563 Code(s): Z90.710 - ACQUIRED ABSENCE OF BOTH CERVIX AND UTERUS Status: Acute Current Visit: Yes - Problem List Review Problem List Initiated/Reviewed/Updated: Yes - My Orders Last 24 Hours: Active Orders 24 hr Category Date Time Status Patient Status [ADT] Routine ADT 10/05/18 11:11 Active Antiembolic Devices [RC] PER UNIT ROUTINE Care 10/05/18 11:11 Active Notify Provider Intake and Out [RC] ASDIRECTED Care 10/05/18 11:11 Active Notify Provider Vital Signs [RC] ASDIRECTED Care 10/05/18 11:11 Active Oxygen Therapy [RC] ASDIRECTED Care 10/05/18 11:11 Active RT Incentive Spirometry [RC] Q2HWA Care 10/05/18 11:11 Active Up With Assistance [RC] PER UNIT ROUTINE Care 10/05/18 11:11 Active Up ad Ritu [RC] PER UNIT ROUTINE Care 10/05/18 11:11 Active Urinary Catheter Removal [RC] ASDIRECTED Care 10/06/18 02:00 Active Vital Signs [RC] PER UNIT ROUTINE Care 10/05/18 11:11 Active Regular Diet [DIET] Diet 10/05/18 Dinner Active Acetaminophen [Ofirmev] 1,000 mg Med 10/05/18 14:00 Active Premix Bag 1 bag IV Q6H Acetaminophen/oxyCODONE [Percocet 325-5 MG] Med 10/05/18 11:10 Active 1 tab PO Q4H PRN Acetaminophen/oxyCODONE [Percocet 325-5 MG] Med 10/05/18 11:10 Active 2 tab PO Q4H PRN Ketorolac [Toradol] Med 10/05/18 11:10 Active 30 mg IVPUSH Q6H PRN Metoclopramide [Reglan] Med 10/05/18 14:00 Active 10 mg IVPUSH Q8H Morphine Med 10/05/18 11:10 Active 4 mg IVPUSH Q2H PRN Ondansetron [Zofran] Med 10/05/18 11:10 Active 4 mg IVPUSH Q6H PRN Promethazine [Phenergan] Med 10/05/18 11:10 Active 25 mg IM Q6H PRN Scopolamine [Transderm-Scop] Med 10/05/18 07:19 Active 1.5 mg TRDERM Q72H PRN Peripheral IV Discontinue [OM.PC] Routine Oth 10/05/18 11:11 Ordered Sequential Compression Device [OM.PC] Per Unit Routine Oth 10/05/18 11:11 Ordered Resuscitation Status Routine Resus Stat 10/05/18 11:10 Ordered Medication Orders Lactated Ringer's (Ringers, Lactated) 1,000 mls @ 125 mls/hr IV ASDIRECTED [facility] Last Admin: 10/05/18 07:49 Dose: 125 mls/hr Acetaminophen 1,000 mg/ Premix 100 mls @ 400 mls/hr IV Q6H [facility] Last Admin: 10/06/18 06:42 Dose: 400 mls/hr Infusion: 10/05/18 23:33 Dose: 400 mls/hr Admin: 10/05/18 23:18 Dose: 400 mls/hr Infusion: 10/05/18 17:57 Dose: 400 mls/hr Admin: 10/05/18 17:42 Dose: 400 mls/hr Infusion: 10/05/18 11:53 Dose: 400 mls/hr Admin: 10/05/18 11:38 Dose: 400 mls/hr Ketorolac Tromethamine (Toradol) 30 mg IVPUSH Q6H PRN PRN Reason: Pain (severe 7-10) Stop: 10/10/18 11:11 Metoclopramide HCl (Reglan) 10 mg IVPUSH Q8H [facility] Last Admin: 10/06/18 06:38 Dose: 10 mg Admin: 10/05/18 23:18 Dose: 10 mg Admin: 10/05/18 13:59 Dose: 10 mg Morphine Sulfate (Morphine) 4 mg IVPUSH Q2H PRN PRN Reason: Pain (severe 7-10) Last Admin: 10/05/18 23:17 Dose: 4 mg Admin: 10/05/18 14:36 Dose: 4 mg Admin: 10/05/18 12:27 Dose: 4 mg Ondansetron HCl (Zofran) 4 mg IVPUSH Q6H PRN PRN Reason: Nausea/Vomiting Oxycodone/Acetaminophen (Percocet 325-5 Mg) 1 tab PO Q4H PRN PRN Reason: Pain (moderate 4-6) Oxycodone/Acetaminophen (Percocet 325-5 Mg) 2 tab PO Q4H PRN PRN Reason: Pain (moderate 4-6) Last Admin: 10/06/18 06:46 Dose: 2 tab Admin: 10/06/18 02:23 Dose: 2 tab Admin: 10/05/18 20:18 Dose: 2 tab Admin: 10/05/18 13:59 Dose: 2 tab Promethazine HCl (Phenergan) 25 mg IM Q6H PRN PRN Reason: Nausea/Vomiting Scopolamine (Transderm-Scop) 1.5 mg TRDERM Q72H PRN PRN Reason: Nausea Last Admin: 10/05/18 07:49 Dose: 1.5 mg - Assessment Assessment (Free Text/Narrative):: 48yo s/p LAVH , post op day 1 , ambulating , voiding and tolerating regular diet Good pain control - Plan Plan (Free Text/Narrative):: Discharge home Encourage ambulation and incentive spirometry at home Pain control with percocet , tylenol and motrin
[2018-10-06] MEDS ORDERED: Enoxaparin 40 MG/0.4 ML Syringe SUBCUT SCH (08:00)
[2018-10-06 09:32] VITALS: BP 135/76
--- NOTE | 2018-10-08 10:07 | OR ---
SURGEON: SANDRITA GONZALEZ DATE OF PROCEDURE: 10/05/2018 PREOPERATIVE DIAGNOSIS: A 48-year-old para 4, with abnormal uterine bleeding. POSTOPERATIVE DIAGNOSIS: A 48-year-old para 4, with abnormal uterine bleeding. PROCEDURES: Laparoscopic-assisted vaginal hysterectomy, bilateral salpingectomy, and cystoscopy. ESTIMATED BLOOD LOSS: 200 IV FLUIDS: 1800 URINE OUTPUT: 200 ANESTHESIA: General. BRIEF HISTORY ABOUT PATIENT: The patient is a 48-year-old para 4, who has had abnormal uterine bleeding. Because of the heavy bleeding, the patient had received 2 units of blood previously in an ER visit. She had ultrasound done that showed an enlarged bulky uterus. No visible lesion noted. She had EMB done, which was benign. The patient was explained the risks, benefits, and alternatives. She wanted to proceed with hysterectomy. Before hysterectomy, she had 3 doses of Lupron. DESCRIPTION OF PROCEDURE: The patient was taken to the operating room, where general anesthesia was performed without difficulty. The patient was prepared and draped in dorsolithotomy position with Jayy stirrups. Both arms were tucked on both sides. Examination under anesthesia showed a 10-week size bulky uterus. The patient was prepared and draped in the usual sterile fashion. The Dodson catheter was inserted. A bivalve speculum was placed to expose the cervix. The anterior lip of the cervix was grasped with Allis forceps. The uterus was sounded to about 10 cm. Then, a manipulator was placed in without difficulty. Then, attention was paid to the abdomen. Marcaine was infiltrated into the subumbilical fold. A small incision was made at the umbilical fold, and the abdomen was entered via direct entry with a fiberoptic trocar. Upon confirmation of entry into the peritoneal cavity, CO2 gas was then insufflated to the abdomen to a pressure of 15 mmHg. Intraabdominal survey revealed normal- appearing liver, gallbladder, and spleen. There were some slight adhesions around the umbilicus from the omentum to the anterior abdominal wall. The uterus was identified. The midportion of the tubes was not noted because it was consistent with the history of BTL. Then, the ureters were identified around the right and the left ovarian fossa, and two 5 mm trocars were inserted into the bilateral lower quadrant, two fingerbreadths medial and anterior to the anterior superior iliac spine, diagonal to the umbilicus. The patient was placed in Trendelenburg position to facilitate pelvic exposure, both ureters were identified, and the hysterectomy was commenced on the right side. The remaining portion of the fimbriated tube was from the ovary and this was removed. Then, the round ligament was coagulated and cut. The ovarian ligament was also coagulated and cut, and the remaining tube was coagulated all the way to the level of the cornua. The broad ligament was entered in and the bladder flap was created with the aid of the LigaSure device. The uterine vessels were coagulated and cut on the right side. The same was also done to the left side where the round ligament was identified and cut. The fimbriated end was removed all the way to the cornua, the tube. The ovarian ligament was dissected off also, and the bladder flap was created. The uterine vessels were then coagulated and cut. Attention was then paid to the perineum. The weighted speculum was placed in the posterior vagina. The cervix was grasped with Dave tenaculum. A circumferential incision was made around the cervical vaginal junction. After incision was made, the vaginal mucosa was pushed off the cervix. The posterior cul-de-sac was entered with heavy Henley scissors. Upon entry, the long Nickie weighted speculum was placed in. Anterior entry was also done with the aid of Metzenbaum scissors on the right, and this was placed in the anterior compartment. Then, the uterosacral was clamped and cut with Lyle and suture-ligated. The same was done all the way up to the cardinals on the right and the left side and the uterines also. The uterus was then mobile now and was removed without difficulty. The uterosacral stitch was then affixed on the right side and on the left side. Then, the edge of the vagina was identified anteroposteriorly. A longitudinal incision was placed, interlocking, with 0 Polysorb. The uterosacral ligament was then tied, the colpotomy was closed, and again hemostasis was noted. Before closure of the colpotomy cuff, the pedicles were inspected and noted to be hemostatic. A cystoscopy was done, intact bladder was noted, and bilateral jets were also noted. Again, the abdomen was then inspected, hemostasis was noted, and the CO2 pressure was reduced to 5, and also hemostasis was noted. Then, all the ports were removed. The laparoscopic incision was closed with Monocryl 3-0. Steri-Strips and Tegaderm were placed. The patient tolerated the procedure well and was taken to the recovery room in stable condition. MARYANA REID /[id number] MTDD
== END 2018-10-06 09:00 | disposition home or self-care (01) ==
LOC: MW.SDS 06:43 → MW.OB 11:39 → MW.SDS 10-06 09:00
PROVIDERS: ATTEND Obstetrics & Gynecology
DX: N85.00 Endometrial hyperplasia, unspecified (principal); N73.6 Female pelvic peritoneal adhesions (postinfective); I10 Essential (primary) hypertension; E66.9 Obesity, unspecified; Z68.32 Body mass index [BMI] 32.0-32.9, adult; Z87.891 Personal history of nicotine dependence; Z79.899 Other long term (current) drug therapy; Z98.51 Tubal ligation status
CPT/HCPCS: 36415; 58552; 80048; 84703; 85025; 86850; 86900; 86901; 88307; A9270; J0131; J0690; J1200; J1650; J1885; J1940; J2001; J2250; J2270; J2370; J2405; J2704; J2765; J3010; J3490; J7120; 00944